=== PATIENT | male | born 1945 | race Caucasian/White ===

== ENCOUNTER → 2017-05-30 | Outpatient (CLI) | payer MEDICARE, OTHER | LOC: M.RAD 10:54 | DX: M47.896 Other spondylosis, lumbar region (principal); M54.18 Radiculopathy, sacral and sacrococcygeal region ==

== ENCOUNTER → 2017-08-02 | Outpatient (CLI) | payer MEDICARE, OTHER | LOC: M.MRI 10:54 | DX: M47.26 Other spondylosis with radiculopathy, lumbar region (principal) ==

== ENCOUNTER → 2018-03-11 | Outpatient (CLI) | payer MEDICARE, OTHER ==
[2018-03-11 12:56] LABS: CHOLESTEROL 122 mg/dL (<200); HDL CHOLESTEROL 40 mg/dL (>40); LDL CHOLESTEROL 66 mg/dL (<100); SERUM ASSESSMENT Clear; TC:HDL 3.1 Ratio (Not establshd); TRIGLYCERIDE 82 mg/dL (<150); VLDL 16 mg/dL (<40)
--- NOTE | 2018-03-11 16:17 | EXE ---
[place] [address] STRESS ECHOCARDIOGRAM Name: TERI ESPINAL Room: [facility]#: [id number] Admission: 03/11/18 Attend Phys: Darrel Simon, Discharge: Date of : 47 Date of Service: 03/11/18 1617 Report #: [id number] THIS REPORT FOR: //name// APPROVED REPORT Study performed: 03/11/2018 11:46:37 Exam: Stress Echocardiogram Indication: Chest pain Patient Location: Out-Patient Stress Nurse: Jaz Loyd RN Supervising Physician: Sesar Clifton MD Ht: 5 ft 9 in HR: 71 bpm BP: 128/78 mmHg Medical History Cardiac Risk Factors: Hyperlipidemia, DM, FHX of CAD Procedure The patient underwent an Exercise Stress Test using the Twan Protocol. Blood pressure, heart rate, and EKG were monitored. An Echocardiogram was performed by mechanical laboratory technician in four stages in quad fashion. At peak stress, four selected images were obtained and placed side by side with resting images for comparison. Stress Test Details Stress Test: Exercise stress testing was performed using a Twan protocol. HR Resting HR: 71 bpm Max Heart Rate (APMHR): 149 bpm Max HR Achieved: 179 bpm Target HR (85% APMHR): 126 bpm % of APMHR: 120 Recovery HR: 109 bpm HR response to stress: Normal HR response to stress BP Resting BP: 128/78 mmHg Max BP: 187/73 mmHg Recovery BP: 118/68 mmHg ECG Resting ECG: Sinus Rhythm, normal EKG Stress ECG: Sinus Tachycardia [place] Change: [place] [address] STRESS ECHOCARDIOGRAM Name: TERI ESPINAL Room: [facility]#: [id number] Admission: 03/11/18 Attend Phys: Darrel Simon, Discharge: Date of : 47 Date of Service: 03/11/18 1617 Report #: [id number] Arrhythmia: None Recovery ECG: Sinus Rhythm, normal EKG Recovery ST Change: None Recovery Arrhythmia: None Clinical Reason for Termination: Completed protocol Exercise duration: 6 min 27 sec Highest Stage Achieved: Stage 3: 3.4 mph at 14% grade. Exercise capacity: 7.69 METs The patient tolerated standard Twan protocol exercise without significant symptoms. Stress ECG Conclusion The baseline 12-lead EKG shows sinus rhythm with no significant ST or T wave abnormalities. EKGs obtained during and post exercise showed sinus rhythm and sinus tachycardia with no significant ST or T wave changes when compared baseline. There were no stress-induced arrhythmias. Pre-Stress Echo The resting Echocardiogram showed normal left ventricular contractility with an estimated Ejection Fraction of about 55-60%. Post-Stress Echo The stress Echocardiogram showed normal left ventricular contractility with an estimated Ejection Fraction of about >70%. Clinical No clinical or ECG evidence for ischemia. Conclusion Clinical Response: Non-ischemic Exercise Capacity: Average Stress ECG Response: Non-ischemic Stress Echo Images: Non-ischemic The left ventricle is normal in size and wall thickness in both the rest and stress images. Other Information Study Quality: Fair <Conclusion> [place] [address] STRESS ECHOCARDIOGRAM Name: TERI ESPINAL Ben Room: [facility]#: [id number] Admission: 03/11/18 Attend Phys: Darrel Simon, Discharge: Date of : 47 Date of Service: 03/11/181616 Report #: [id number] The left ventricle is normal in size and wall thickness in both the rest and stress images. <ELECTRONICALLY SIGNED> By: Sesar Clifton MD, FACC 03/11/181616 16 16 Sesar Clifton MD, FACC /INF
== END ==
LOC: M.CRD 11:00
PROVIDERS: Internal Medicine Cardiovascular Disease
DX: R07.89 Other chest pain (principal)